=== PATIENT | male | born 1980 | race Caucasian/White ===

== ENCOUNTER 2022-04-15 16:20 | Emergency (ER) | payer SELFPAY ==
[~2022-04-15] VITALS: Wt 74.8 kg
[2022-04-15] MEDS ORDERED: BENZONATATE100 M1 PO (17:55)
[2022-04-15] MEDS ORDERED: PREDNISONE20 M1 PO (17:55)
== END 2022-04-15 18:19 | disposition home or self-care (01) ==
LOC: ED 16:20
DX: J40 Bronchitis, not specified as acute or chronic (principal); Z20.822 Contact with and (suspected) exposure to COVID-19; Z88.2 Allergy status to sulfonamides